=== PATIENT | male | born 1985 | race Caucasian/White ===

== ENCOUNTER 2017-04-06 18:44 | Emergency (ER) | payer OTHER ==
[~2017-04-06] VITALS: Ht 190.5 cm; Wt 90.9 kg
[~2017-04-06 18:44] MED LIST: ALUM5LIQ PO; BUDE100T PO; DOXE10 PO; IBUP600T26 PO; OMEP40CA2 PO
[2017-04-06 18:45] VITALS: BP 117/68; PULSE 70; RESP 18; TEMP 98.1; O2SAT 99
[2017-04-06] MEDS ORDERED: SUBO2MIS SL (19:10)
[2017-04-06] MEDS ORDERED: LIDOCAINE HCL 1% 50 ML VIAL INFIL ONE (19:30)
--- NOTE | 2017-04-06 19:30 | PD ---
HPI Chief Complaint: Injury Time Seen by Provider: 19:27 Travel History International Travel<30 days: No Contact w/Intl Traveler<30days: No Traveled to known affect area: No History of Present Illness HPI 31-year-old male presents to the emergency room requesting to have his toenail removed. Patient dropped a log on his foot 3 weeks ago and states his toenail partially fell off but he cannot get the last little bit. He has tried to pull it off but it is too painful. He denies pain when he is not pulling in his toenail. Patient states "I just need a shot of Novocain and some pliers." Tetanus is up-to-date. PFSH Past Medical History Arthritis: Yes (in his spine) Anxiety: Yes Depression: Yes Cancer: No Cardiovascular Problems: No High Cholesterol: Yes Endocrine: No Gastrointestinal Disorders: Yes (CHRONIC DIARRHEA) Genitourinary: No Immune Disorder: No Musculoskeletal: Yes (CHRONIC KNEE PAIN, CHRONIC LOW BACK PAIN) Neurologic: No Psychiatric: Yes (PTSD) Reproductive: No Respiratory: No Past Surgical History Other Surgery: Yes (CYST REMOVED FROM L ARMPIT) Social History Alcohol Use: No Tobacco Use: Yes (PPD) Substance Use: Yes (MARIJUANA, OPIOIDS, BENZO) Allergies-Medications (Allergen,Severity, Reaction): Coded Allergies: Ceclor (Verified Allergy, Severe, 04/06/17) Penicillin (Verified Allergy, Severe, 04/06/17) Reported Meds & Prescriptions Reported Meds & Active Scripts Active Reported Suboxone Sublingual Film (Buprenorphine-Naloxone Sublingual Film) 2-0.5 Mg Film 1 Film SL BID Unique ID number required: Review of Systems Except as stated in HPI: all other systems reviewed are Neg Physical Exam Narrative GENERAL: Well-nourished, well-developed male in no acute distress. Afebrile. Ambulatory. SKIN: Focused skin assessment warm/dry. The left great toe has previous avulsion with new nail approximately shelter up the nail bed. There is a pre- existing, ingrown nail approximately 0.5 cm in diameter to the great toe on the lateral aspect. HEAD: Normocephalic. EYES: No scleral icterus. No injection or drainage. NECK: Supple, trachea midline. No JVD or lymphadenopathy. CARDIOVASCULAR: Regular rate and rhythm without murmurs, gallops, or rubs. RESPIRATORY: Breath sounds equal bilaterally. No accessory muscle use. PSYCHIATRIC: No delusional thought processes. No hallucinations. Data Data Last Documented VS Vital Signs Date Time Temp Pulse Resp B/P Pulse Ox O2 Delivery O2 Flow Rate FiO2 04/06/17 18:45 98.1 70 18 117/68 99 Orders Lidocaine 1% Inj (50 Ml) (Xylocaine 1% I (04/06/17 19:30) MDM Medical Decision Making Medical Screen Exam Complete: Yes Emergency Medical Condition: Yes Medical Record Reviewed: Yes Differential Diagnosis Ingrown toenail, avulsion, contusion, infection Narrative Course 31-year-old male presents to the emergency room for evaluation of ingrown toenail for the past several months. Physical exam reveals ingrown nail approximately 0.5 cm in diameter to the great toe on the lateral aspect without infection. Old toenail is interfering with the growth of the new toenail. Digital block was performed and old toenail chunk was removed. Patient discharged with wound care instructions and told to follow-up with the primary care physician or return for worsening symptoms. He understands and agrees to plan. Procedures Procedure Narrative Angered toenail removal: The area was prepped with chlorhexidine. A subcutaneous wheal of 1% lidocaine with a total number 4 mL was used to anesthetize the area properly. Forceps were used to grasp the toenail and remove it. The nailbed was cleansed and irrigated with normal saline. Sterile dressing and triple antibiotic ointment applied. Diagnosis Primary Impression: Ingrown toenail Referrals: Grinding Operator Patient Instructions: General Instructions, Ingrown Nail (ED) Additional Instructions: Keep wound clean and dry. Apply triple antibiotic ointment daily until healed. Follow-up with a x ray inspector. Return to the emergency room for worsening symptoms. Disposition: 01 DISCHARGE HOME Condition: Stable Wanda Gonzalez Apr 06, 2017 19:30
== END 2017-04-06 20:13 | disposition home or self-care (01) ==
LOC: PHED 18:44 → PHEFT 20:13
DX: L60.0 Ingrowing nail (principal); G89.29 Other chronic pain; F43.10 Post-traumatic stress disorder, unspecified; E78.00 Pure hypercholesterolemia, unspecified; F17.210 Nicotine dependence, cigarettes, uncomplicated
CPT/HCPCS: 11730